=== PATIENT | male | born 1980 | race Caucasian/White ===

== ENCOUNTER 2016-05-03 12:52 | Emergency (ER) | payer MEDICAID ==
[~2016-05-03] VITALS: Ht 185.4 cm; Wt 65.9 kg
[~2016-05-03 12:52] MED LIST: GABA-502 PO; INS7030U SUBQ; LEVO300T2 PO; OXYC1TAB24 PO
[2016-05-03 13:00] VITALS: BP 135/91; PULSE 101; RESP 16; O2SAT 100
[2016-05-03] MEDS ORDERED: LEVO500T16 PO (13:04)
--- NOTE | 2016-05-03 13:48 | ED.REPORT ---
HPI-Rash / Abscess Date of Service May 03, 2016 ED Provider: Ti Guerra PA-C Jay is a 36-year-old male with history of diabetes who presents with a sore on his left foot. Reports he was traveling in [place] last weekend noticed a sore between his first and second toes on his left foot, probably secondary to wearing flip-flops. He sought treatment at the local clinic and was given levofloxacin 500 mg, which he continues to take. He reports that his condition was improving through the week until Wednesday when he went swimming. He noted that the swelling worsened after that. He denies fever, chills, malaise, abdominal pain, vomiting, diarrhea. Nursing Notes Stated Complaint: INFECTION ON FOOT Chief Complaint: Extremity Trauma Nursing Notes Reviewed: Yes Allergies: Coded Allergies: codeine (Verified Allergy, Unknown, Nausea,Vomiting, 05/03/16) Scheduled Cephalexin (Keflex) 500 Mg Capsule 500 MG PO QID Gabapentin (Gabapentin) 300 Mg Capsule 300 MG PO TID Insul NPH Hu Rec/Ins Rg Hu Rec (Novolin 70/30 U100 Insulin Vial) 100 U/1 Ml U 20 U SUBQ QAM Insul NPH Hu Rec/Ins Rg Hu Rec (Novolin 70/30 U100 Insulin Vial) 100 U/1 Ml U 20 U SUBQ QPM Levofloxacin (Levaquin) 500 Mg Tablet 500 MG PO DAILY Levothyroxine (Synthroid) 300 Mcg Tablet 300 MCG PO DAILY Sulfamethoxazole/Trimeth 800-160 mg (Bactrim DS) 1 Each Tablet 2 TABLET PO BID General Time Seen by MD: 13:28 Chief Complaint Tender/swollen area Past Medical History Past Medical History Notes: staying with parents on [address], still there 11/2015 Past Medical History Reports: Diabetes mellitus Past Surgical History Patient denies Family History Reviewed, not relevant Smoking History Current Every Day Smoker Social History Alcohol Use: 1-3 per day Drug Use: Denies drug use, THC Occupation lives with parents on [address]. 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 Head: Atraumatic, normocephalic. Eyes: No scleral icterus or injection. No discharge. Vision grossly intact. ENT: Voice clear, hearing grossly intact. Respiratory: Regular rate and rhythm. No respiratory distress. No increased work of breathing, speaks in complete sentences. Cardiovascular: Regular rate and rhythm, without murmur, gallop or rub. No pedal edema. Gastrointestinal: Abdomen flat and non-tender without guarding or rebound. Bowel sounds normoactive. Skin: Warm and dry. Left leg: Negative pitting edema, red, non-tender skin on the anterior leg. Patient states due to sunburn. Diameter roughly equal to right. Negative pitting edema. Left foot: 2 cm x 0.5 cm wound that appears to penetrate into the dermis on the medial aspect of the second toe advancing to the dorsal aspect of the MTP joint. Surrounded by moderate erythema progresses to just proximal to the ankle. No tenderness noted. PT and DP pulses appreciated. Right leg: Negative Edema. red, nontender skin on medial aspect, again attributed to sunburn. Pattern of redness on the left and right leg appears consistent with crossing the legs. Right foot: One half centimeter shallow wound on the medial aspect of second toe. No surrounding erythema or tenderness. PT and DP pulses appreciated Neurological: Grossly nonfocal. Psychological: Alert and oriented. Speech appropriate, linear and logical. Behavior appropriate. Initial Vital Signs Vital Signs (First) Date Time Temp Pulse Resp B/P Pulse Ox O2 Delivery O2 Flow Rate FiO2 05/03/16 13:00 36.3 101 16 135/91 100 Room Air Initial VS: Reviewed, Vital signs abnormal (mild tachycardia) Interpretation & Diagnostics Interpretation & Diagnostics: Mild hyponatremia, hyperchloremia noted, not thought clinically relevant. Elevated glucose likely secondary to infection. Elevated bilirubin at 1.7 not thought relevant Lab Results Interpretation Result Diagram: 05/03/16 1352 05/03/16 1525 Test 05/03/16 13:52 05/03/16 15:25 White Blood Count 6.1th/mm3 (3.8-10.1) Red Blood Count 4.77mil/mm3 (4.40-5.80) Hemoglobin 15.1g/dL (13.8-17.2) Hematocrit 42.9% (41.0-50.0) Mean Corpuscular Volume 89.9fL (81-100) Mean Corpuscular Hemoglobin 31.7pg (27.0-35.0) Mean Corpuscular Hemoglobin Concent 35.2% (32.0-37.0) Red Cell Distribution Width 11.5% (12.3-15.4) Platelet Count 216bil/L (150-400) Erythrocyte Sedimentation Rate 12mm/hr (0-15) Sodium Level 133mEq/L (134-144) Potassium Level 4.4mEq/L (3.5-5.2) Chloride Level 94mEq/L (97-108) Carbon Dioxide Level 22mmol/L (18-29) Blood Urea Nitrogen 8mg/dL (6-20) Creatinine 0.54mg/dL (0.76-1.27) Estimat Glomerular Filtration Rate 183mL/min (>59) Glucose Level 408mg/dL (60-99) Calcium Level 8.6mg/dL (8.5-10.1) Total Bilirubin 1.7mg/dL (0.0-1.2) Aspartate Amino Transf (AST/SGOT) 36U/L (0-50) Alanine Aminotransferase (ALT/SGPT) 32U/L (0-44) Alkaline Phosphatase 97U/L (25-150) C-Reactive Protein 0.4mg/dL (0.0-0.5) Total Protein 6.8g/dL (6.4-8.4) Albumin 4.0g/dL (3.4-5.0) Hold Jackson Top Tube Received (Received) Re-Eval/Medical Decision Med Decision/Clinical Course 36-year-old male with a history of diabetes presents with a sore between his first and second toes as well as redness and swelling throughout his foot. He states he was traveling in [place] and developed a sore approximately one week ago. He was treated with antibiotics. He reports it was improving for a few days but began worsening after he went swimming. On presentation he has no indication of systemic illness. The sore between his toes is surrounded by moderate redness and swelling to the ankle. Pulses are present and capillary refill is brisk. Pain is mild. I believe this is cellulitis secondary wound between his toes. Consider DVT, but I feel swelling is better explained by the sore on the foot and there is no calf swelling. Administered 2 g of Rocephin IV as well as 1 L of normal saline. CBC and CMP are normal with the exception of hyperglycemia, possibly secondary to the infection in his foot. I discussed this finding with the patient. At this point believe he is stable and safe to be discharged home. I think that is reasonable to attempt outpatient treatment with Keflex and Bactrim and see no indication for admission. Advise primary care follow-up in 3 days. Patient understands and agrees with the plan. Provided primary care follow-up instructions as well as emergency return precautions. I discussed this case with Dr. Padilla Discharge & Departure Impression: Primary Impression: Cellulitis of left foot Disposition: Home Discharge Condition All VS Reviewed: Yes Condition: Stable Patient Instructions: Cellulitis (ED) Additional Instructions: Evaluation in the emergency department for a left foot wound. History and physical are suggestive of a cellulitis secondary to the wound caused by wearing flip-flops too much. It appears the initial antibiotics were prescribed was not effective. Fortunately you do not appear to be very ill and it is reasonable to try another round of outpatient antibiotics. You have been given 1 dose of ceftriaxone in the emergency department. I would like to follow this with 7 days of 2 different antibiotics. I will prescribe Keflex 500 mg to be taken 4 times a day as well as Bactrim DS to be taken twice a day. Follow-up with your primary care provider in 3 days to make sure that this is progressing as expected. Return to the emergency department for any new or worsening symptoms including fever, chills, sweats, racing heart, feeling ill. Referrals: Mary Sampson PA-C (PCP) EDSupervising Provider for APC: Davion Simental DO copies to: Mary Sampson PA-C, Seth PA-C May 03, 2016 13:48
[2016-05-03] MEDS ORDERED: 0.9% Sodium Chloride 1,000 ML IV ONE (13:55)
[2016-05-03] MEDS ORDERED: cefTRIAXone Inj 2,000 MG in Dextrose 5% Minibag Plus 50 ML IV ONE (13:55)
[2016-05-03 14:38] LABS: Mean Corpuscular Hemoglobin 31.7 pg (27.0-35.0); Mean Corpuscular Volume 89.9 fL (81-100)
[2016-05-03 16:30] VITALS: BP 132/86; PULSE 95; RESP 16; O2SAT 99
[2016-05-03] MEDS ORDERED: SULF1TAB7 PO (16:44)
[2016-05-03] MEDS ORDERED: CEPH-512 PO (16:44)
== END 2016-05-03 17:00 | disposition home or self-care (01) ==
LOC: SED 12:52
DX: L03.116 Cellulitis of left lower limb (principal); E11.65 Type 2 diabetes mellitus with hyperglycemia; F17.200 Nicotine dependence, unspecified, uncomplicated; Z79.4 Long term (current) use of insulin; Z88.5 Allergy status to narcotic agent
CPT/HCPCS: 36415; 80053; 85027; 85651; 86140; 96361; 96365; 99284; J0696; J7030

== ENCOUNTER 2016-06-30 12:11 | Emergency (ER) | payer SELFPAY ==
[~2016-06-30] VITALS: Ht 185.4 cm; Wt 65.9 kg
[~2016-06-30 12:11] MED LIST changes: +CEPH-512 PO; +LEVO500T16 PO; -OXYC1TAB24 PO; +SULF1TAB7 PO
[2016-06-30 12:24] VITALS: BP 134/82; PULSE 94; RESP 15; O2SAT 100
[2016-06-30 12:41] LABS: BASOPHILS % (AUTO) 0.4 % (0-3); EOSINOPHILS % (AUTO) 1.5 % (0-5); MONOCYTES % (AUTO) 9.6 % (4-12); Mean Corpuscular Hemoglobin 31.8 pg (27.0-35.0); Mean Corpuscular Volume 92.4 fL (81-100); NEUTROPHILS % (AUTO) 73.6 % (40-74); Platelet Count 212 bil/L (150-400)
[2016-06-30 13:05] LABS: APPEARANCE,URINE CLEAR (CLEAR,HAZY); COLOR,URINE YELLOW (YELLOW); PH,URINE 6.5 (5.0-8.0)
[2016-06-30 13:06] LABS: OCCULT BLOOD,URINE TRACE (NEGATIVE); UROBILINOGEN,URINE NORMAL (NORMAL)
--- NOTE | 2016-06-30 14:12 | ED.REPORT ---
HPI-General Illness Date of Service June 30, 2016 ED Provider: Davion Simental DO 36 year old male with type 1 diabetes presents to the ER complaining of three days of frequent stools. Associated symptoms include abdominal discomfort and nausea. Patient denies vomiting, fever, and SOB. He also mentions that his blood sugars have been elevated in the 400's for the past few days. Nursing Notes Stated Complaint: FREQUENT URINATION Chief Complaint: Male Abdominal Pain Nursing Notes Reviewed: Yes Allergies: Coded Allergies: codeine (Verified Allergy, Unknown, Nausea,Vomiting, 05/03/16) Scheduled Cephalexin (Keflex) 500 Mg Capsule 500 MG PO QID Gabapentin (Gabapentin) 300 Mg Capsule 300 MG PO TID Insul NPH Hu Rec/Ins Rg Hu Rec (Novolin 70/30 U100 Insulin Vial) 100 U/1 Ml U 20 U SUBQ QAM Insul NPH Hu Rec/Ins Rg Hu Rec (Novolin 70/30 U100 Insulin Vial) 100 U/1 Ml U 20 U SUBQ QPM Levofloxacin (Levaquin) 500 Mg Tablet 500 MG PO DAILY Levothyroxine (Synthroid) 300 Mcg Tablet 300 MCG PO DAILY Sulfamethoxazole/Trimeth 800-160 mg (Bactrim DS) 1 Each Tablet 2 TABLET PO BID General Time Seen by MD: 13:55 Chief Complaint Other (Frequent Stool) Hx Obtained From: Patient Arrived By: Walk-in Sudden in Onset?: No Onset Occurred: 3 days ago Symptom Duration: Since onset Associated with: Reports: Nausea, Denies: Fever, Vomiting Similar Sx Previous: No (.) Past Medical History Past Medical History Notes: staying with parents on [facility], still there 11/2015 Past Medical History Reports: Diabetes mellitus Past Surgical History Patient denies Family History Reviewed, not relevant Smoking History Current Every Day Smoker Social History Alcohol Use: 1-3 per day Drug Use: Denies drug use, THC Occupation lives with parents on [facility]. 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 Physical Exam Vital Signs Vital Signs Date Time Temp Pulse Resp B/P Pulse Ox O2 Delivery O2 Flow Rate FiO2 06/30/16 12:24 36.4 94 15 134/82 100 Room Air Initial VS: Reviewed Head / Eyes: Atraumatic, Normocephalic Neck: Supple, Non-tender, Full range of motion Respiratory: Breath sounds normal, Clear to auscultation, No respiratory distress Cardiovascular: Regular rate & rhythm, Heart sounds normal, Intact distal pulses Extremities: Vascular intact, Neuro intact, No swelling, No tenderness Skin: Warm, Dry, No cyanosis Neurologic: Alert, Oriented, Nonfocal Psychiatric: Mood/affect normal, Behavior normal, Normal thought content General/Constitutional: Awake, Alert, Well developed, Well nourished Abdomen: Soft, Non-tender, No rebound, No distention Interpretation & Diagnostics Lab Results Interpretation Result Diagram: 06/30/16 1230 06/30/16 1230 Test 06/30/16 12:30 06/30/16 12:44 White Blood Count 6.9th/mm3 (3.8-10.1) Red Blood Count 5.25mil/mm3 (4.40-5.80) Hemoglobin 16.7g/dL (13.8-17.2) Hematocrit 48.5% (41.0-50.0) Mean Corpuscular Volume 92.4fL (81-100) Mean Corpuscular Hemoglobin 31.8pg (27.0-35.0) Mean Corpuscular Hemoglobin Concent 34.4% (32.0-37.0) Red Cell Distribution Width 12.4% (12.3-15.4) Platelet Count 212bil/L (150-400) Neutrophils (%) (Auto) 73.6% (40-74) Lymphocytes (%) (Auto) 14.8% (14-46) Monocytes (%) (Auto) 9.6% (4-12) Eosinophils (%) (Auto) 1.5% (0-5) Basophils (%) (Auto) 0.4% (0-3) Sodium Level 134mEq/L (134-144) Potassium Level 4.8mEq/L (3.5-5.2) Chloride Level 93mEq/L (97-108) Carbon Dioxide Level 27mmol/L (18-29) Blood Urea Nitrogen 11mg/dL (6-20) Creatinine 0.56mg/dL (0.76-1.27) Estimat Glomerular Filtration Rate 175mL/min (>59) Glucose Level 400mg/dL (60-99) Calcium Level 9.6mg/dL (8.5-10.1) Magnesium Level 2.0mg/dL (1.6-2.6) Total Bilirubin 1.5mg/dL (0.0-1.2) Aspartate Amino Transf (AST/SGOT) 25U/L (0-50) Alanine Aminotransferase (ALT/SGPT) 18U/L (0-44) Alkaline Phosphatase 93U/L (25-150) Total Protein 7.1g/dL (6.4-8.4) Albumin 4.4g/dL (3.4-5.0) Lipase 37U/L (13-60) Urine Color Yellow (YELLOW) Urine Appearance Clear (CLEAR,HAZY) Urine pH 6.5 (5.0-8.0) Urine Specific [place] 1.015 (1.003-1.035) Urine Protein Negativemg/dL (NEG,TRACE) Urine Glucose (UA) 1000mg/dL (NEGATIVE) Urine Ketones 15mg/dL (NEGATIVE) Urine Occult Blood Trace (NEGATIVE) Urine Nitrite Negative (NEGATIVE) Urine Bilirubin Negative (NEGATIVE) Urine Urobilinogen Normalmg/dL (NORMAL) Urine Leukocyte Esterase Negative (NEGATIVE) Urine RBC 3-10/hpf (0-2) Urine WBC 0-5/hpf (0-5) Urine Epithelial Cells Occasional/hpf (NONE-MOD) Urine Crystals None seen (NONE SEEN) Urine Bacteria None/hpf (NONE-FEW) Urine Hyaline Casts None/lpf (NONE) Urine Granular Casts None seen (NONE SEEN) Urine Waxy Casts None seen (NONE SEEN) Urine Red Blood Cell Casts None seen (NONE SEEN) Urine White Blood Cell Casts None seen (NONE SEEN) Urine Mucus None seen (None Seen) Urine Trichomonas None seen (NONE SEEN) Urine Yeast None (NONE SEEN) Urinalysis Comment Urine Culture Reflexed Not indicated Re-Eval/Medical Decision Med Decision/Clinical Course Normal anion gap, generally well-appearing. he is hyperglycemic however this would not be considered if anything would be very mild. He declines an IV line he declines IV fluids he declines further testing. Overall his diarrhea sounds low risk is frequent in nature however it does not have blood, mucus, high fever or severe pain. Labs are otherwise reassuring. Was given strict return and follow-up precautions. Time of Eval: 14:15 Re-Evaluation/Progress Note: Discussed physical examination findings and plan to discharge. Patient is amenable to the plan. Return precautions given. All other questions addressed. Counseled Regarding: Diagnosis, Lab results, Need for follow-up, When/why to return to ED Discharge & Departure Primary Impression: Diarrhea Additional Impression: Hyperglycemia Disposition: Home Discharge Condition All VS Reviewed: Yes Condition: Stable Patient Instructions: Acute Diarrhea (ED) Additional Instructions: It does not appear that you are in severe DKA today. Your evaluation is reassuring. I do not believe that there is any dangerous cause for your symptoms. Continue your home insulin. Stay hydrated, drink plenty of fluids. Return to the ER if you develop blood in your stool, high fever, chills, vomiting or any other concerning symptoms. Referrals: Mary Sampson PA-C (PCP) [facility] Attestation Portions of this note were transcribed by Flor Barker. I, Dr. Simental, personally performed the history, physical exam and medical decision-making; I reviewed and confirmed the accuracy of the information in the transcribed note. Signed by: James Fontaine, 06/30/2016 and 14:39 copies to: Mary Sampson PA-C, Timothy S DO June 30, 2016 14:12 FLOR BARKER June 30, 2016 14:20
[2016-06-30] MEDS ORDERED: Insulin Human REGular-Omnicell 100 Unit/mL ONE (14:45)
[2016-06-30] MEDS ORDERED: Insulin Human NPH-Reg 70-30 100 Unit/mL 10 ML Mdv SUBQ SCH (16:30)
== END 2016-06-30 14:44 | disposition home or self-care (01) ==
LOC: SED 12:11
DX: R19.7 Diarrhea, unspecified (principal); E10.65 Type 1 diabetes mellitus with hyperglycemia; F17.200 Nicotine dependence, unspecified, uncomplicated; Z79.4 Long term (current) use of insulin; Z88.5 Allergy status to narcotic agent
CPT/HCPCS: 36415; 80053; 81000; 83690; 83735; 85025; 99283; J1815